=== PATIENT | female | born 1995 | race Hispanic/Latino ===

== ENCOUNTER 2022-02-24 09:48 | Emergency (ER) | payer BC ==
[~2022-02-24] VITALS: Ht 162.6 cm; Wt 105.7 kg
[2022-02-24] MEDS ORDERED: ONDANSETRON HCL INJ 2MG/ML 2ML 2 MG/ML VIAL IV STA (10:26)
[2022-02-24] MEDS ORDERED: KETOROLAC TROMETHAMINE 30 MG/ML VIAL IV STA (10:26)
[2022-02-24] MEDS ORDERED: SODIUM CHLORIDE FLUSH 10 ML SYR IV PRN (10:30)
[2022-02-24] MEDS ORDERED: SODIUM CHLORIDE 0.9% 1000ML 1,000 ML IV SCH (10:30)
[2022-02-24 10:40] LABS: BASOPHILS % 0.5 % (0.0-1.0); EOSINOPHILS # (AUTO) 0.2 (0.0-0.4); EOSINOPHILS % 1.8 % (0.0-6.0); HEMATOCRIT 38.3 % (34.2-44.1); HEMOGLOBIN 12.1 g/dL (12.0-16.0); LYMPHOCYTES # (AUTO) 2.1 (1.0-3.2); LYMPHOCYTES % 24.5 % (18.0-39.1); MEAN CORPUSCULAR HEMOGLOBIN 26.4 pg (28-32); MEAN CORPUSCULAR HGB CONC 31.6 g/dL (31-35); MEAN CORPUSCULAR VOLUME 83.6 fL (81-99); MONOCYTES # (AUTO) 0.5 (0.2-0.8); MONOCYTES % 5.2 % (4.4-11.3); NEUTROPHILS # (AUTO) 5.9 (2.1-6.9); NEUTROPHILS % 67.8 % (38.7-80.0); PLATELET COUNT 339 x10e3/uL (140-360); RED BLOOD COUNT 4.58 x10e6/uL (3.6-5.1)
[2022-02-24 10:46] LABS: AMPHETAMINES SCREEN,URINE NEGATIVE (NEGATIVE); BENZODIAZEPINES SCREEN,URINE NEGATIVE (NEGATIVE); CLARITY,URINE SL CLOUDY (CLEAR); COLOR,URINE YELLOW (YELLOW); PHENCYCLIDINE SCREEN,URINE NEGATIVE (NEGATIVE)
[2022-02-24 10:47] LABS: KETONES,URINE NEGATIVE (NEGATIVE); LEUKOCYTE ESTERASE ,URINE NEGATIVE (NEGATIVE); NITRITE,URINE NEGATIVE (NEGATIVE); PROTEIN,URINE DIPSTICK NEGATIVE (NEGATIVE); URINE UROBILINOGEN 0.2 mg/dL (0.2 - 1)
[2022-02-24 11:02] LABS: ALBUMIN 3.9 g/dL (3.5-5.0); ANION GAP 15.1 mmol/L (8-16); CALCIUM 9.1 mg/dL (8.4-10.2); CREATININE, SERUM 0.74 mg/dL (0.57-1.11); POTASSIUM 4.1 mmol/L (3.5-5.1)
[2022-02-24 11:05] LABS: INR 0.94; PROTHROMBIN TIME 13.4 seconds (11.9-14.5)
[2022-02-24 11:06] LABS: PARTIAL THROMBOPLASTIN TIME 32.1 seconds (23.8-35.5)
[2022-02-24] MEDS ORDERED: IOPAMIDOL 370 MG/ML 100 ML INFUS..BTL INJ ONE (11:13)
[2022-02-24 11:15] LABS: EPITHELIAL CELLS,URINE FEW /LPF
[2022-02-24 11:17] LABS: BACTERIA,URINE FEW /HPF; RBC,URINE 0-5 /HPF (0-5); WBC,URINE (MAN) 0-5 /HPF (0-5)
[2022-02-24] MEDS ORDERED: ONDANSETRON ODT4 MG PO (12:30)
[2022-02-24] MEDS ORDERED: NAPROSYN500 MG PO (12:30)
[2022-02-24 12:41] VITALS: BP 117/77
== END 2022-02-24 12:42 | disposition home or self-care (01) ==
LOC: ER 09:53
DX: R10.30 Lower abdominal pain, unspecified (principal); N94.6 Dysmenorrhea, unspecified; R11.0 Nausea; K21.9 Gastro-esophageal reflux disease without esophagitis; Z98.84 Bariatric surgery status
CPT/HCPCS: 36415; 74177; 80053; 80307; 81001; 84702; 85025; 85610; 85730; 99284; J1885; J2405; J7030; Q9967